=== PATIENT | female | born 1990 | race Caucasian/White ===

== ENCOUNTER → 2022-01-05 | Outpatient (CLI) | payer OTHER ==
[~2022-01-05] MED LIST: FLUTISP; LEVOTAB10 PO; MULT1TAB16 PO; PANT40TA29 PO; SETL1TAB
== END ==
LOC: M LABSMTC 11:26
PROVIDERS: ATTEND Anesthesiology
DX: Z01.818 Encounter for other preprocedural examination (principal); Z11.52 Encounter for screening for COVID-19

== ENCOUNTER 2022-01-09 11:44 | Day surgery (SDC) | payer OTHER ==
[~2022-01-09] VITALS: Ht 165.1 cm; Wt 69.9 kg
[~2022-01-09 11:44] MED LIST changes: +NS 1,000 ML IV ONE
[2022-01-09] MEDS ORDERED: fentaNYL 100 MCG/2 ML INJECTION As Ordered ONE (12:49)
[2022-01-09] MEDS ORDERED: ONDANSETRON 4MG/2ML VIAL As Ordered ONE (13:29)
[2022-01-09] MEDS ORDERED: LIDOCAINE 2% 100MG/5ML SDV (FOR ANES.) As Ordered ONE (13:29)
[2022-01-09] MEDS ORDERED: propofoL 200 MG/20 ML VIAL As Ordered ONE (13:29)
[2022-01-09 14:04] VITALS: BP 124/77
== END 2022-01-09 14:09 | disposition home or self-care (01) ==
LOC: M OPP 11:44
PROVIDERS: ATTEND Internal Medicine Gastroenterology
DX: K29.70 Gastritis, unspecified, without bleeding (principal); K92.0 Hematemesis; Z79.899 Other long term (current) drug therapy; Z91.018 Allergy to other foods; Z91.048 Other nonmedicinal substance allergy status; Z86.16 Personal history of COVID-19; Z87.891 Personal history of nicotine dependence
CPT/HCPCS: 43239; 88305; J2405; J3010

== ENCOUNTER → 2022-06-09 | Outpatient (CLI) | payer OTHER ==
[~2022-06-09] MED LIST changes: -NS 1,000 ML IV ONE
== END ==
LOC: M RAD 09:04
PROVIDERS: ATTEND Internal Medicine Gastroenterology
DX: R11.2 Nausea with vomiting, unspecified (principal)
CPT/HCPCS: 78264; A9541

== ENCOUNTER → 2022-10-19 | Outpatient (CLI) | payer OTHER ==
[~2022-10-19] MED LIST changes: +KELN1TAB PO
== END ==
LOC: M LABSMTC 11:06
PROVIDERS: ATTEND Anesthesiology
DX: Z01.818 Encounter for other preprocedural examination (principal); Z11.52 Encounter for screening for COVID-19

== ENCOUNTER 2022-10-22 08:20 | Day surgery (SDC) | payer OTHER ==
[~2022-10-22] VITALS: Ht 165.1 cm; Wt 69.3 kg
[~2022-10-22 08:20] MED LIST changes: +NS 1,000 ML IV ONE
[2022-10-22] MEDS ORDERED: propofoL 200 MG/20 ML VIAL As Ordered ONE ×2 (10:04→10:18)
[2022-10-22] MEDS ORDERED: LIDOCAINE 2% 100MG/5ML SDV (FOR ANES.) As Ordered ONE (10:04)
[2022-10-22 10:52] VITALS: BP 121/70
== END 2022-10-22 10:54 | disposition home or self-care (01) ==
LOC: M OPP 08:20
PROVIDERS: ATTEND Internal Medicine Gastroenterology
DX: K63.89 Other specified diseases of intestine (principal); K62.5 Hemorrhage of anus and rectum; K64.4 Residual hemorrhoidal skin tags; K64.8 Other hemorrhoids; J45.909 Unspecified asthma, uncomplicated; N80.9 Endometriosis, unspecified; F41.9 Anxiety disorder, unspecified; Z83.79 Family history of other diseases of the digestive system; Z79.3 Long term (current) use of hormonal contraceptives; Z79.51 Long term (current) use of inhaled steroids; Z79.52 Long term (current) use of systemic steroids; Z91.018 Allergy to other foods; Z91.048 Other nonmedicinal substance allergy status; Z91.011 Allergy to milk products

== ENCOUNTER → 2022-10-26 | Outpatient (CLI) | payer OTHER ==
[~2022-10-26] MED LIST changes: -NS 1,000 ML IV ONE
[2022-10-26 09:21] LABS: BASO % 0.2 % (0.0-1.0); EOS # 0.1 10^3/uL (0.0-0.5); EOS % 2.1 % (0.0-3.0); HEMATOCRIT 45.3 % (36.0-47.0); HEMOGLOBIN 14.4 g/dl (12.0-15.5); LYMPH # 1.1 10^3/uL (1.5-5.0); LYMPH % 24.9 % (24.0-44.0); MEAN CORPUSCULAR HEMOGLOBIN 29.6 pg (27.0-33.0); MEAN CORPUSCULAR HGB CONC 31.8 g/dl (32.0-36.5); MONO # 0.3 10^3/uL (0.0-0.8); MONO % 6.4 % (2.0-8.0); NEUTROPHILS # 2.9 10^3/uL (1.5-8.5); NEUTROPHILS % 66.2 % (36.0-66.0); PLATELET COUNT, AUTOMATED 206 10^3/uL (150-450); RED BLOOD COUNT 4.87 10^6/uL (4.00-5.40); WHITE BLOOD COUNT 4.4 10^3/uL (4.0-10.0)
[2022-10-26 09:40] LABS: ALBUMIN 3.4 G/DL (3.2-5.2); ALKALINE PHOSPHATASE 44 U/L (46-116); ALT/SGPT 19 U/L (7.0-40); AST/SGOT 17 U/L (<34); BILIRUBIN,DIRECT < 0.1 MG/DL (<0.4); BILIRUBIN,TOTAL 0.3 MG/DL (0.3-1.2); BLOOD UREA NITROGEN 9 MG/DL (9-23); CARBON DIOXIDE LEVEL 29 MMOL/L (20-31); CHLORIDE LEVEL 105 MMOL/L (98-107); CREATININE FOR GFR 0.79 MG/DL (0.55-1.30); GLOMERULAR FILTRATION RATE > 60.0 (>60); GLUCOSE, FASTING 76 MG/DL (60-100); POTASSIUM SERUM 4.4 MMOL/L (3.5-5.1); SODIUM LEVEL 139 MMOL/L (136-145); TOTAL PROTEIN 6.7 G/DL (5.7-8.2)
== END ==
LOC: M LAB 08:39
PROVIDERS: ATTEND Internal Medicine Gastroenterology
DX: R11.2 Nausea with vomiting, unspecified (principal)

== ENCOUNTER 2023-05-29 20:16 | Emergency (ER) | payer OTHER ==
[~2023-05-29] VITALS: Ht 165.1 cm; Wt 70.4 kg
[~2023-05-29 20:16] MED LIST changes: +FLUT50SP17; -FLUTISP
[2023-05-29] MEDS ORDERED: BOOSTRIX VACCINE (TETANUS/DIPHTH/ACEL. PERTUSSIS) 0.5ML SYR IM.IMMUN ONE (22:50)
[2023-05-29 23:15] VITALS: BP 140/77
[2023-05-29 23:16] VITALS: TEMP 98.1; O2SAT 98
== END 2023-05-29 23:42 | disposition home or self-care (01) ==
LOC: M ED 20:16
DX: S00.83XA Contusion of other part of head, initial encounter (principal); S06.0X9A Concussion with loss of consciousness of unspecified duration, initial encounter; T14.8XXA Other injury of unspecified body region, initial encounter; V18.4XXA Pedal cycle driver injured in noncollision transport accident in traffic accident, initial encounter; Y92.410 Unspecified street and highway as the place of occurrence of the external cause; Z79.899 Other long term (current) drug therapy; Z79.3 Long term (current) use of hormonal contraceptives; Z91.018 Allergy to other foods